=== PATIENT | female | born 1955 ===

== ENCOUNTER → 2025-03-08 09:55 | Outpatient (REF) | payer BC, SELFPAY | LOC: HWRAD 09:55 | PROVIDERS: ATTENDING PHYSICIAN Specialist; FAMILY PHYSICIAN Family Medicine | DX: M19.012 Primary osteoarthritis, left shoulder (principal) | CPT/HCPCS: 73200 ==

== ENCOUNTER → 2025-07-26 09:15 | Outpatient (REF) | payer BC, SELFPAY ==
[2025-07-26 09:43] LABS: Hematocrit 48.1 % (37.0-47.0); Hemoglobin 16.2 g/dL (12.0-16.0); Mean Corp Hgb Conc. 33.7 g/dL (33.0-37.0); Mean Corpuscular Volume 93.4 fL (81.0-99.0); Nucleated Red Blood Cells % 0 %; Platelet Count 220 10^3/uL (130-400); Red Cell Dist. Width 12.5 % (11.5-14.5)
[2025-07-26 11:07] LABS: Blood Urea Nitrogen 33 mg/dl (7-17); Calcium 10.7 mg/dl (8.4-10.2); Carbon Dioxide 30 mmol/L (22-30); Chloride 104 mmol/L (98-107); Glucose 134 mg/dl (70-99); Potassium 4.8 mmol/L (3.5-5.1); Sodium 141 mmol/L (135-145); eGFR > 60.00
== END ==
LOC: REG 09:15
PROVIDERS: ATTENDING PHYSICIAN Specialist; FAMILY PHYSICIAN Family Medicine
DX: Z01.818 Encounter for other preprocedural examination (principal)
CPT/HCPCS: 36415; 80048; 85025; 93005